=== PATIENT | female | born 1995 | race Asian ===

== ENCOUNTER 2019-07-04 14:28 | Emergency (ER) | payer SELFPAY ==
[~2019-07-04] VITALS: Ht 157.5 cm; Wt 63.6 kg
[2019-07-04] MEDS ORDERED: ACETAMINOPHEN 500 MG TABLET PO ONE (15:00)
[2019-07-04 15:23] VITALS: BP 106/70
== END 2019-07-04 15:32 | disposition home or self-care (01) ==
LOC: EMS 14:30
DX: J06.9 Acute upper respiratory infection, unspecified (principal); M79.10 Myalgia, unspecified site